=== PATIENT | female | born 1940 | race Caucasian/White ===

== ENCOUNTER 2020-03-25 22:38 | Observation (INO) | payer MEDICARE ==
[~2020-03-25 22:38] MED LIST: Iopamidol-370 76% 500 ML 1 ML ONE
[2020-03-25] MEDS ORDERED: Ondansetron PF 4 MG/2 ML Vial ONE ×2 (22:55→23:15)
--- NOTE | 2020-03-25 23:04 | CT ---
CT HEAD WITHOUT IV CONTRAST COMPARISON: 11/28/2018 HISTORY: Level 1 stroke. Slurred speech. Patient has become increasingly dictated and noncompliant. TECHNIQUE: Axial CT imaging at 5 mm intervals from vertex through skull base without contrast FINDINGS: There is decreased attenuation in the periventricular white matter which is nonspecific but likely re flective of chronic small vessel ischemic changes. There is mild cerebral volume loss. The ventricular system is normal in size, shape, and position for the degree of sulcal atrophy. There is no evidence of an acute infarction, hemorrhage, mass effect, or midline shift. Skull base has a normal CT appearance. Mucosal thickening is seen within posterior ethmoid air cells and right sphenoid sinus. Mastoid air c ells are clear. Osseous structures appear intact. No significant interval change from prior study. IMPRESSION: 1. No acute intracranial abnormality demonstrated. 2. Chronic changes. 3. Above findings discussed Dr. Castañeda in the emergency department on 03/25/2020 at 2300 hours.
[2020-03-25 23:05] LABS: #Basophils 0.1 thou/uL (0.0-0.2); #Eosinphils 0.1 thou/uL (0.0-0.7); #Lymphocytes 2.8 thou/uL (1.20-3.40); #Monocytes 0.7 thou/uL (0.11-0.59); #Neutrophils 3.7 thou/uL (1.40-6.50); %Basophils 1.2 % (0.0-1.0); %Eosinophils 1.5 % (0.0-10.0); %Lymphocytes 38.1 % (21.0-51.0); %Monocytes 8.9 % (0.0-10.0); %Neutrophils 50.3 % (42.0-75.0); Hemoglobin 12.3 g/dL (12.0-16.0); Mean Corpuscular HGB CONC 32.9 g/dL (32.0-36.0); Mean Corpuscular Hemoglobin 30.1 pg (27.0-31.0); Mean Corpuscular Volume 91.5 fL (78.0-98.0); Mean Platelet Volume 6.9 fL (7.4-10.4); Platelet Count 260 thou/uL (130-400); RBC Distribution Width 12.4 % (11.5-14.5); Red Blood Cell (RBC) Count 4.09 mill/uL (4.20-5.40); White Blood Cell (WBC) Count 7.4 thou/uL (4.8-10.8)
[2020-03-25 23:06] LABS: PTT 25.5 sec (22.9-36.1)
[2020-03-25 23:17] LABS: ALT (SGPT) 8 U/L (8-55); AST (SGOT) 17 U/L (5-34); Albumin 4.6 g/dL (3.4-4.8); Alkaline Phosphatase 72 U/L (40-110); Anion Gap 21 mmol/L (10-20); BUN (Urea Nitrogen) 26 mg/dL (9.8-20.1); Bilirubin, Total 0.6 mg/dL (0.2-1.2); Calc. Creatinine Clearance 0 mL/min (70-130); Calcium 9.8 mg/dL (7.8-10.44); Carbon Dioxide 21 mmol/L (23-31); Chloride 98 mmol/L (98-107); Globulin 3.3 g/dL (2.4-3.5); Glucose 131 mg/dL (83-110); Lipase 11 U/L (8-78); Magnesium 1.7 mg/dL (1.6-2.6); Potassium 4.4 mmol/L (3.5-5.1); Protein, Total 7.9 g/dL (6.0-8.3); Sodium 136 mmol/L (136-145)
[2020-03-25 23:40] LABS: CKMB 1.7 ng/mL (0-6.6)
[2020-03-26] MEDS ORDERED: cefTRIAXone\\ROCEPHIN 1 GM VIAL ONE (00:12)
[2020-03-26] MEDS ORDERED: Aspirin 325 MG TAB ONE (00:12)
--- NOTE | 2020-03-26 00:42 | PDOC.FPRHP ---
- History of Present Illness Chief Complaint: slurred speech, RUE weakness History of Present Illness: Pt is a 79 yo F with PMH of hypothyroidism, DM2 in ER for suspected stroke. She was at dinner at [employer] last night around 10pm when she had right arm weakness & speech slurring. By the time she reached the ER her symptoms had resolved and per son in law was back to baseline. Son in law did not appreciate facial droop. He reports for the past few days she has been dropping more things and struggling with right hand coordination. Patient notes she has been more clumsy the past few days. However, she felt normal preceding the events at dinner. Patient denies fall, syncope, headache, vision changes, chest pain, shortness of breath, N/V/D, fever or chills. ED Course: Zofran x2, 1L NS, Rocephin, Aspirin 325 - Allergies/Adverse Reactions Allergies Allergy/AdvReac Type Severity Reaction Status Date / Time Penicillins Allergy Verified 03/26/20 03:25 - Home Medications Medication Instructions Recorded Confirmed Type Aspirin [Adult Low Dose Aspirin EC] 81 mg PO DAILY 03/26/20 03/26/20 History Doxycycline Hyclate 100 mg PO DAILY 03/26/20 03/26/20 History Levothyroxine Sodium [Synthroid] 50 mcg PO DAILY 03/26/20 03/26/20 History Sulfamethoxazole/Trimethoprim 1 tab PO BID 03/26/20 03/26/20 History [Bactrim DS] metFORMIN HCl [Metformin ER 500 mg PO DAILY 03/26/20 03/26/20 History Osmotic] - History PMHx: Hypothyroid, DMII PSHx: B/l knee, cholecystectomy FHx: na Social: smoked 40+ years ago, 3 ppd for 6 days, no alcohol or drug use - Review of Systems General: denies: fever/chills, weight/appetite/sleep changes Eyes: denies: eye pain, vision changes ENT: denies: rhinorrhea Respiratory: denies: cough, congestion, shortness of breath Cardiovascular: denies: chest pain, palpitation Gastrointestinal: reports: nausea. denies: vomiting, diarrhea, constipation, abdominal pain Genitourinary: reports: polyuria. denies: incontinence, dysuria, discharge Skin: denies: rashes, lesions Musculoskeletal: denies: pain, tenderness Neurological: reports: weakness, other (slurred speech) - Vital signs BP: 116/69, Pulse: 90, Resp: 18, O2 sat: 99 on (Room Air) - Physical Exam Constitutional: NAD, awake, alert and oriented, well developed HEENT: normocephalic and atraumatic, PERRLA, EOMI, no scleral icterus, MMM, oropharynx clear Neck: supple, FROM Heart: RRR, normal S1/S2, no murmurs/rubs/gallops Lungs: CTAB, no respiratory distress, good air movement Abdomen: soft, non-tender, bowel sounds present Musculoskeletal: normal structure, normal tone, ROM grossly normal Neurological: no focal deficit, CN II-XII intact, normal sensation -Neurological: no dysarthria, strength intact in bilateral UE and LE Skin: no rash/lesions, good turgor Heme/Lymphatic: no unusual bruising or bleeding, no purpura, no petechia Psychiatric: normal mood and affect, good judgment and insight, intact recent and remote memory FMR H&P: Results - Labs Result Diagrams: 03/25/20 22:47 03/26/20 02:12 Lab results: WBC 7.4 thou/uL (4.8-10.8) 03/25/20 22:47 Hgb 12.3 g/dL (12.0-16.0) 03/25/20 22:47 Hct 37.4 % (36.0-47.0) 03/25/20 22:47 MCV 91.5 fL (78.0-98.0) 03/25/20 22:47 Plt Count 260 thou/uL (130-400) 03/25/20 22:47 Neutrophils % 50.3 % (42.0-75.0) 03/25/20 22:47 Sodium 136 mmol/L (136-145) 03/25/20 22:47 Potassium 4.4 mmol/L (3.5-5.1) 03/25/20 22:47 Chloride 98 mmol/L (98-107) 03/25/20 22:47 Carbon Dioxide 21 mmol/L (23-31) L 03/25/20 22:47 BUN 26 mg/dL (9.8-20.1) H 03/25/20 22:47 Creatinine 1.68 mg/dL (0.6-1.1) H 03/25/20 22:47 Glucose 131 mg/dL (83-110) H 03/25/20 22:47 Calcium 9.8 mg/dL (7.8-10.44) 03/25/20 22:47 Total Bilirubin 0.6 mg/dL (0.2-1.2) 03/25/20 22:47 AST 17 U/L (5-34) 03/25/20 22:47 ALT 8 U/L (8-55) 03/25/20 22:47 Alkaline Phosphatase 72 U/L (40-110) 03/25/20 22:47 CK-MB (CK-2) 1.7 ng/mL (0-6.6) 03/25/20 22:47 Serum Total Protein 7.9 g/dL (6.0-8.3) 03/25/20 22:47 Albumin 4.6 g/dL (3.4-4.8) 03/25/20 22:47 Lipase 11 U/L (8-78) 03/25/20 22:47 - EKG Interpretation EKG: NSR 81, QTC 458 - Radiology Interpretation CT scan - head Status: report reviewed by me (CTA: 50% narrowing involving the proximal bilateral ICAs, focal atherosclerotic narrowing involving P1 segment of L posterior cerebral artery with mild-mod narrowing. CT Brain: No acute intracranial abnormality) FMR H&P: A/P - Plan TIA vs CVA CTA: 50% narrowing involving the proximal bilateral ICAs, focal atherosclerotic narrowing involving P1 segment of L posterior cerebral artery with mild-mod narrowing CT Brain: No acute intracranial abnormality - MRI Brain WO contrast ordered - permissive HTN - bedside swallow study passed, can resume PO intake at this time - risk stratify: Lipid panel, TSH, a1c - q4hr neuro checks - PT/OT - continue aspirin - cardiac monitoring Indeterminate Troponins 0.238 EKG: NSR, no ST changes - continue to trend - cardiac monitoring GÓMEZ vs CKD4 Cr 1.68, GFR 29 Per patient was recently referred to [facility] [employer] [facility], has not seen yet - encourage PO intake - recheck am labs UTI Dx with PCP, on day 8/10 of Bactrim - s/p Rocephin x 1 in the ED - adequately treated DMII - check a1c - continue home meds, mild SSI Hypothyroidism - check TSH - resume home meds Rosacea - resume doxycyline PCP: Antonio IVFs: SL DVT PPx: Heparin Dispo: suspected LOS <48 hours pending MRI Brain Code status: DNR-DNI FMR H&P: Upper Level - Plan Date/Time: 03/26/20 0042 I, [Shelley Call], have evaluated this patient and agree with findings/plan as outlined by international bank manager resident. Pertinent changes/additions are listed here. 79 yo F with PMH of hypothyroidism, DM2 in ER for suspected stroke. She was at dinner at [employer] ([employer] last night around 10pm when she had right arm weakness & speech slurring. By the time she reached the ER her symptoms had resolved and per son in law was back to baseline. He reports for the past few days she has been dropping more things and struggling with right hand coordination. No prior cardiovascular hx. In the ER CT head was negative for ICH and CTA with focal atherosclerotic narrowing of P1 segment and left slightly < 50% bilateral stenosis of internal carotid arteries. Indeterminate troponin of 0.2 and Cr of 1.68. Denies chest pain , SOB. Will be admitted to stroke for TIA vs. CVA. Will order risk stratifying labs, tele monitoring and plan for MRI brain in the AM. Allow for permissive hypertension. Passed bedside swallow, can resume PO intake at this time. Has been given 325mg of ASA in ER, will continue daily. Received 1g of Rocephin in ER, won't continue home abx. dvt ppx: heparin gi ppx: none code: DNR los: <2 midnights pcp: Dr. Alvarez Addendum - Attending - Attending Attestation Date/Time: 03/26/20 9826 I personally evaluated the patient and discussed the management with Dr. Hu/Jakub. I agree with the History, Examination, Assessment and Plan documented above with any addition or exceptions noted below. Patient here with TIA/CVA r/o. Deficits resolved. MRI, Echo, Neuro checks.
[2020-03-26] MEDS ORDERED: Dextrose 5% in Water 1,000 ML IV PRN (00:44)
[2020-03-26] MEDS ORDERED: HumaLOG 300 UNITS/3 ML VIAL SC PRN (00:44)
[2020-03-26] MEDS ORDERED: Dextrose 50% Abboject 50 ML SYRINGE SLOW IVP PRN (00:44)
[2020-03-26] MEDS ORDERED: Ondansetron ODT 4 MG TAB PO PRN (00:44)
[2020-03-26 01:22] LABS: Bilirubin Negative (Negative); Blood, Urine Negative (Negative); Clarity Clear (Clear); Glucose, Urine (Dipstick) Normal (Negative); Ketone, Urine Negative (Negative); Leukocyte Negative Leu/uL (Negative); Nitrite Negative (Negative); Protein, Urine (Dipstick) 10 mg/dL (Neg-Trace); Specific Gravity, Urine 1.024 (1.002-1.036); Urobilinogen Normal mg/dL (Less than 2); pH, Urine 6.5 (5.0-9.0)
[2020-03-26 02:48] LABS: Troponin I 0.132 ng/mL (< 0.028)
[2020-03-26 02:51] LABS: Anion Gap 23 mmol/L (10-20); BUN (Urea Nitrogen) 24 mg/dL (9.8-20.1); Calc. Creatinine Clearance 0 mL/min (70-130); Calcium 9.5 mg/dL (7.8-10.44); Carbon Dioxide 18 mmol/L (23-31); Cardiac Risk 2.3 (Less than 4.5); Chloride 96 mmol/L (98-107); Cholesterol 203 mg/dl (< 200 Desired); Glucose 168 mg/dL (83-110); HDL Cholesterol 89 mg/dL (>60 Neg Risk); LDL Cholesterol, Calculated 97 mg/dL; Sodium 133 mmol/L (136-145); Triglycerides 85 mg/dL (Less than 150)
[2020-03-26 02:55] LABS: Hemoglobin A1c 6.3 % (4.0-6.0)
[2020-03-26 03:30] VITALS: BMI 18.8
[2020-03-26] MEDS: Levothyroxine Sodium 50 MCG TAB PO SCH (05:49)
[2020-03-26] MEDS: HumaLOG 300 UNITS/3 ML VIAL SC PRN (05:49)
--- NOTE | 2020-03-26 06:24 | PDOC.FM ---
- Subjective Subjective: Patient doing well this AM. Reports no weakness, numbness, or tingling. Overall patient reports she is feeling back to baseline. - Objective MAR Reviewed: Yes Vital Signs & Weight: Vital Signs (12 hours) Pulse Ox 03/26/20 03:25 98 Weight Weight 51.211 kg Result Diagrams: 03/25/20 22:47 03/26/20 02:12 Phys Exam - Physical Examination Constitutional: NAD Respiratory: no wheezing, no rales, no rhonchi, clear to auscultation bilateral Cardiovascular: RRR, no significant murmur, no rub Gastrointestinal: soft, non-tender, no distention, positive bowel sounds Neurological: normal sensation, moves all 4 limbs Symmetrical facies Psychiatric: normal affect, A&O x 3 Dx/Plan - Plan Plan: TIA vs CVA CTA: 50% narrowing involving the proximal bilateral ICAs, focal atherosclerotic narrowing involving P1 segment of L posterior cerebral artery with mild-mod narrowing CT Brain: No acute intracranial abnormality - MRI Brain WO contrast today, ECHO today - permissive HTN - bedside swallow study passed, can resume PO intake at this time - q4hr neuro checks - PT/OT - continue aspirin - cardiac monitoring Indeterminate Troponins 0.238 -> 0.132 EKG in ED: NSR, no ST changes - continue to trend - cardiac monitoring GÓMEZ vs CKD4 Per patient was recently referred to [facility] Att[employer], has not seen yet - encourage PO intake - SCr improved to 1.38 UTI Dx with PCP, on day 8/10 of Bactrim - s/p Rocephin x 1 in the ED - adequately treated, UA without signs of infection, will dc DMII - check a1c - Hold Metformin given GFR Hypothyroidism - resume home meds, TSH wnl Rosacea - resume doxycyline PCP: Antonio IVFs: SL DVT PPx: Heparin Dispo: suspected LOS <48 hours pending MRI Brain Code status: DNR-DNI Addendum - Attending - Attending Attestation Date/Time: 03/26/20 0215 I personally evaluated the patient and discussed the management with Dr. Martin. I agree with the History, Examination, Assessment and Plan documented above with any addition or exceptions noted below. Patient feels well, and back to baseline. Awaiting MRI and hopeful dc if normal.
[2020-03-26] MEDS ORDERED: metFORMIN XR 500 MG TAB PO SCH (08:00)
[2020-03-26] MEDS ORDERED: Aspirin 81 mg Enteric Coated Tablet PO SCH ×2 (09:00)
[2020-03-26] MEDS: Heparin 5,000 UNITS/ML VIAL SC SCH ×3 (09:20→19:34)
[2020-03-26] MEDS: Doxycycline 100 MG CAP PO SCH (09:20)
[2020-03-26 12:36] LABS: SARS-CoV-2 MS2 Positive; SARS-CoV-2 N Gene Negative; SARS-CoV-2 S Gene Negative; SARS-CoV-2 by NAA Not Detected (NotDetected); SARS-CoV-2 orf1ab Negative
--- NOTE | 2020-03-27 05:21 | PDOC.FM ---
- Subjective Subjective: Patient feeling "Better than she has in a while" this AM. No acute concerns, denies neuro sx. - Objective MAR Reviewed: Yes Vital Signs & Weight: Vital Signs (12 hours) Temp Pulse Resp BP Pulse Ox 03/27/20 03:52 97.9 F 75 14 146/70 H 99 03/27/20 00:00 99.0 F 77 24 H 132/68 98 03/26/20 20:00 98.3 F 77 18 136/66 99 Weight Admit Weight 51.211 kg Weight 51.211 kg I&O: 03/25/20 03/26/20 03/27/20 06:59 06:59 06:59 Output Total 600 Balance -600 Result Diagrams: 03/25/20 22:47 03/26/20 02:12 Phys Exam - Physical Examination Constitutional: NAD Respiratory: no wheezing, no rales, no rhonchi, clear to auscultation bilateral Cardiovascular: RRR, no significant murmur, no rub Gastrointestinal: soft, non-tender, no distention, positive bowel sounds Neurological: non-focal, normal sensation, moves all 4 limbs No changes from yesterday, 5/5 strength, symmetric facies Dx/Plan - Plan Plan: TIA vs CVA CTA: 50% narrowing involving the proximal bilateral ICAs, focal atherosclerotic narrowing involving P1 segment of L posterior cerebral artery with mild-mod narrowing CT Brain: No acute intracranial abnormality - MRI Brain WO contrast today - ECHO showing Diastolic dysfunction - permissive HTN - bedside swallow study passed, can resume PO intake at this time - q4hr neuro checks - PT/OT - continue aspirin - cardiac monitoring Indeterminate Troponins 0.238 -> 0.132 EKG in ED: NSR, no ST changes - cardiac monitoring GÓMEZ vs CKD4 Per patient was 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 Code status: DNR-DNI Addendum - Attending - Attending Attestation Date/Time: 03/27/20 2740 I personally evaluated the patient and discussed the management with Dr. Martin. I agree with the History, Examination, Assessment and Plan documented above with any addition or exceptions noted below. Patient feels well and at baseline. MRI today, discharge with negative result. Needs continued BP control given echo findings of diastolic dysfunction.
[2020-03-27] MEDS: Levothyroxine Sodium 50 MCG TAB PO SCH (05:53)
[2020-03-27] MEDS ORDERED: Aspirin 81 mg Enteric Coated Tablet PO SCH (09:00)
[2020-03-27] MEDS: Doxycycline 100 MG CAP PO SCH (09:02)
[2020-03-27] MEDS: Heparin 5,000 UNITS/ML VIAL SC SCH (09:03)
--- NOTE | 2020-03-27 10:50 | MRI ---
EXAM: Brain MRI Without contrast: HISTORY: Slurred speech, altered mental status COMPARISON: None FINDINGS: Multiplanar multisequence MRI examination of the brain is performed. The ventricles are within normal limits of size shape and position. No mass or midline shift. No evidence for intra or extra-axial hemorrhage. No evidence for abnormal restricted diffusion. No evidence for acute infarct. Normal-appearing flow voids are noted. Bilateral ethmoid sinus mucosal disease. Minimal bilateral atrophy and chronic white matter ischemic change. Small right periventricular lacun ar infarct. IMPRESSION: No significant acute intracranial process. No mass or bleed. No acute infarct.
[2020-03-27 11:43] VITALS: BP 170/68; TEMP 97.9
[2020-03-27] MEDS: HumaLOG 300 UNITS/3 ML VIAL SC PRN (11:47)
--- NOTE | 2020-03-28 10:24 | DIS ---
DATE OF ADMISSION: 03/26/2020 DATE OF DISCHARGE: 03/27/2020 RESIDENT: Ricky Martin MD ADMITTING ATTENDING: Kwan Ogden MD DISCHARGE ATTENDING: Sandip Austin MD CONSULTS: None. PROCEDURES: CT brain negative for acute intracranial process. CT angio of the head and neck significant for bilateral internal carotid artery stenosis of just less than 50% with narrowing of the P1 segment and left posterior cerebral artery. Echocardiogram performed showing EF 55% to 60% with severely dilated left atrium. Brain MRI performed showing no significant acute intracranial process. PRIMARY DIAGNOSIS: Transient ischemic attack. SECONDARY DIAGNOSES: 1. Indeterminate troponins. 2. Acute kidney injury with chronic kidney disease, 4. 3. Urinary tract infection. 4. Diabetes, type 2. 5. Hypothyroidism. 6. Rosacea. DISCHARGE MEDICATIONS: 1. Aspirin 81 mg p.o. daily. 2. Atorvastatin 40 mg p.o. daily. 3. Doxycycline 100 mg p.o. daily. 4. Synthroid 50 mcg p.o. daily. DISCONTINUED MEDICATIONS: Metformin discontinued due to GFR of 38 and hemoglobin A1c of 6.3. HISTORY OF PRESENT ILLNESS/HOSPITAL COURSE: The patient is an 79-year-old female with past medical history of hypothyroidism and type 2 diabetes, who presented to the ER due to right-sided weakness after eating dinner. The patient reported that for the past few days, she had been feeling more clumsy than normal, but no significant acute changes. In the ER, the patient received Zofran, normal saline, Rocephin, and aspirin. CT brain and CT angio done in the ED reports as above. During admission, the patient was stable and neurological deficit resolved in the ED. The patient received echocardiogram with results above. An MRI was performed on day 2 of hospital admission due to holiday with report as above. No evidence of acute infarct during hospitalization. Discussed with the patient stopping metformin for now and following up with PCP to determine if it should be restarted given GFR of 38 in the hospital. I also discussed with the patient possible Holter monitor given TIA-like event with severely dilated left atrium on echo concerning for atrial fibrillation. Recommended followup with PCP. DISPOSITION: Stable. DISCHARGE INSTRUCTIONS: 1. Location: Home. 2. Diet: Diabetic diet, heart healthy. 3. Activity: As tolerated. 4. Followup: Please follow up with PCP, Dr. Alvarez, within 2 weeks. Job ID: [id number] [facility]
--- NOTE | 2020-03-31 10:38 | CT ---
EXAM: CT angiogram head and neck with IV contrast and 3-D reconstructions PROVIDED CLINICAL HISTORY: Level 1 stroke. Slurred speech. Increasingly became agitated. COMPARISON: None FINDINGS: Vascular calcifications are seen at the aortic arch. There is a common origin of the innominate arter y and left common carotid artery which are patent. The left subclavian artery is patent with scattered vascular calcifications. A portion of the right subclavian artery is obscured due to dense contrast in adjacent veins but otherwise patent. The bilateral common carotid arteries are patent. Dense vascular calcifications are seen at each myers tid artery bifurcation. There is mild (less than 50%) narrowing involving each proximal internal carotid artery. The left vertebral artery arises from the aortic arch and is patent and codominant with the right pilar tebral artery. Proximal right vertebral artery is tortuous, but the right vertebral artery is patent. Most distal right vertebral artery is smaller in caliber and provides a prominent branch to t he right posterior inferior cerebellar artery. The basilar artery is patent but very small in caliber. There are type origins of each posterior cerebral artery. The right posterior cerebral artery i s patent. There there is a focal atherosclerotic irregularity and narrowing involving the proximal P1 segment of the left posterior cerebral artery. The more distal aspect of the left posterior cerebr al artery is not well visualized and may be very small in caliber. Prominent vascular calcifications are seen in the carotid siphons. The bilateral middle cerebral and anterior cerebral arteries are patent without focal stenosis or branch occlusion. No intracranial aneurysm is appreciated on this exam. Prominent multilevel degenerative change seen throughout the cervical spine. Postoperative changes re lated to anterior cervical fusion at the C3-4 level are present with intradiscal prosthesis present. There is mild mucosal thickening is seen in a few posterior ethmoidal air cells and right sphenoid si nus. Chronic parenchymal lung changes are seen in each lung apex. IMPRESSION: 1. Atherosclerotic calcifications and just less than 50% narrowing involving the proximal bilateral i nternal carotid arteries. 2. Left vertebral artery arises from the aortic arch. Vertebral arteries are otherwise patent. 3. type origins of each posterior cerebral artery. The right posterior cerebral artery is paten t. There is focal atherosclerotic narrowing involving the P1 segment of the left posterior cerebral artery with mild to moderate narrowing present. The more distal left posterior cerebral artery is not well seen and may be very small in caliber. 4. Bilateral middle cerebral and anterior cerebral arteries appear patent without focal stenosis or b ranch occlusion. 5. Above findings discussed Dr. Castañeda in the emergency department on 03/25/2020 at 2331 hours. Transcribed Date/Time: 03/31/2020 10:37 AM
== END 2020-03-27 13:06 | disposition home or self-care (01) ==
LOC: ERS 22:38 → 2SE 03-26 00:13
PROVIDERS: ADMIT Family Medicine; ATTEND Family Medicine
DX: G45.9 Transient cerebral ischemic attack, unspecified (principal); R79.89 Other specified abnormal findings of blood chemistry; E11.22 Type 2 diabetes mellitus with diabetic chronic kidney disease; N18.4 Chronic kidney disease, stage 4 (severe); N17.9 Acute kidney failure, unspecified; N39.0 Urinary tract infection, site not specified; E03.9 Hypothyroidism, unspecified; L71.9 Rosacea, unspecified; Z87.891 Personal history of nicotine dependence; Z79.82 Long term (current) use of aspirin; Z79.899 Other long term (current) drug therapy; Z88.0 Allergy status to penicillin; Z20.828 Contact with and (suspected) exposure to other viral communicable diseases
CPT/HCPCS: 51701; 70450; 70496; 70498; 70551; 80048; 80053; 80061; 81003; 82553; 82962 ×2; 83036; 83690; 83735; 84443; 84484 ×2; 85025; 85610; 85730; 93005; 93306; 96365; 96375; 97116; 97139 ×3; 99291; 99292; U0003; 36415; 36416; 87635; 96372; G0378; J0696; J1644; J2405; Q9967